=== PATIENT | female | born 1990 | race Caucasian/White ===

== ENCOUNTER 2023-03-07 01:46 | Emergency (ER) | payer OTHER ==
[2023-03-07] MEDS ORDERED: MAGNES/ALUMIN/SIMET 30ML UCUP ONE (02:37)
[2023-03-07] MEDS ORDERED: METOCLOPRAMIDE 10 MG/2mL INJ ONE (02:38)
[2023-03-07] MEDS ORDERED: ACETAMINOPHEN 500 MG TAB ONE (02:39)
[2023-03-07] MEDS ORDERED: NA CHLORIDE 0.9% 1,000 ML ONE (02:40)
[2023-03-07] MEDS ORDERED: ONDANSETRON 4 MG/2 ML VIAL ONE (02:40)
[2023-03-07] MEDS ORDERED: DICYCLOMINE HCL 10 MG CAP ONE (02:40)
[2023-03-07 02:53] LABS: Hematocrit 36.5 % (36.0-45.0); Lymphocytes % 23.8 % (15.3-44.8); MCV 84.4 fL (80-100); MPV 8.2 fL (7.6-11.3); RBC Red Blood Cell Count 4.33 M/uL (3.86-4.86)
[2023-03-07 02:55] LABS: Specific Gravity 1.005 (1.005-1.030); Urine Bacteria <20 /HPF (<20); Urine Bilirubin NEGATIVE (Negative); Urine Blood Negative (Negative); Urine Clarity Turbid (Clear); Urine Color Colorless (Yellow); Urine Glucose NEGATIVE (Negative); Urine Protein NEGATIVE (Negative); Urine RBC None Seen /HPF (None Seen); Urine Urobilinogen Normal (Normal); Urine pH 6.5 (5.0-7.0)
[2023-03-07 03:11] LABS: Albumin 2.8 g/dL (3.4-5.0); Bilirubin Total 0.2 mg/dL (0.2-1.0); Potassium 3.4 mEq/L (3.5-5.1)
--- NOTE | 2023-03-07 05:21 | ER ---
Nurse's Notes [facility] Name: Kelley Sung Age: 32 yrs Sex: Female : 1990 Arrival Date: 03/07/2023 Time: 01:46 Bed 15 Private MD: Diagnosis: associated nausea, cholelithiasis without cholecystitis, biliary colic Presentation: 03/07 01:56 Chief complaint: Patient states: epigastric pain began last P)M current;y 14 weeks kl EDC 09/04/23 reports no increase in nausea. Coronavirus screen: Vaccine status: Patient reports receiving the 2nd dose of the covid vaccine. Ebola Screen: Patient negative for fever greater than or equal to 101.5 degrees Fahrenheit, and additional compatible Ebola Virus Disease symptoms. Initial Sepsis Screen: Does the patient meet any 2 criteria? No. Patient's initial sepsis screen is negative. Does the patient have a suspected source of infection? No. Patient's initial sepsis screen is negative. Risk Assessment: Do you want to hurt yourself or someone else? Patient reports no desire to harm self or others. 01:56 Method Of Arrival: Ambulatory kl 01:56 Acuity: CATHY 3 kl 05:39 Onset of symptoms was March 07, 2023. ha1 Triage Assessment: 02:02 General: Appears uncomfortable, Behavior is calm, cooperative. Pain: Complains of pain kl in epigastric area Pain currently is 6 out of 10 on a pain scale. Quality of pain is described as aching. GI: Reports upper abdominal pain, anorexia. 02:02 General: Appears comfortable, Behavior is calm, cooperative. Pain: Complains of pain in ha1 abdomen and epigastric area Pain does not radiate. Pain currently is 6 out of 10 on a pain scale. Neuro: Level of Consciousness is awake, alert, obeys commands, Oriented to person, place, time, situation. Cardiovascular: Patient's skin is warm and dry. Respiratory: Airway is patent Respiratory effort is even, unlabored, Respiratory pattern is regular, symmetrical. GI: Abdomen is flat, non-distended, Bowel sounds present X 4 quads. Reports upper abdominal pain, nausea, vomiting. : No signs and/or symptoms were reported regarding the genitourinary system. Musculoskeletal: Circulation, motion, and sensation intact. Range of motion: intact in all extremities. Historical: - Allergies: 02:01 No Known Allergies; kl - Home Meds: 02:01 Vitamin Oral 1 tab daily [Active]; zofran [Active]; kl - PSHx: 02:01 None; kl - Immunization history:: Adult Immunizations not immunized. - Social history:: Smoking status: Patient denies any tobacco usage or history of. - Family history:: not pertinent. Screenin:55 [facility] ED Fall Risk Assessment (Adult) History of falling in the last 3 months, ha1 including since admission No falls in past 3 months (0 pts) Confusion or Disorientation No (0 pts) Score/Fall Risk Level 0 - 2 = Low Risk Oriented to surroundings, Maintained a safe environment, Educated pt \T\ family on fall prevention, incl call for assistance when getting out of bed. 02:53 Abuse screen: Denies threats or abuse. Denies injuries from another. Nutritional ha1 screening: No deficits noted. Tuberculosis screening: No symptoms or risk factors identified. Assessment: 01:55 Reassessment: see triage assessment. ha1 01:55 GI: Abd is soft and non tender X 4 quads. ha1 02:50 Reassessment: Patient and/or family updated on plan of care and expected duration. Pain ha1 level reassessed. Patient is alert, oriented x 3, equal unlabored respirations, skin warm/dry/pink. 03:50 Reassessment: Patient and/or family updated on plan of care and expected duration. Pain ha1 level reassessed. Patient is alert, oriented x 3, equal unlabored respirations, skin warm/dry/pink. 04:50 Reassessment: Patient and/or family updated on plan of care and expected duration. Pain ha1 level reassessed. Patient is alert, oriented x 3, equal unlabored respirations, skin warm/dry/pink. Patient states feeling better. Patient states symptoms have improved. Vital Signs: 01:56 BP 133 / 88; Pulse 78; Resp 16; Temp 98.2(O); Pulse Ox 99% on R/A; Weight 73.48 kg; kl Height 5 ft. 2 in. ; Pain 6/10; 02:50 BP 130 / 91; Pulse 85; Resp 18 S; Pulse Ox 100% on R/A; ha1 03:50 BP 118 / 76; Pulse 76; Resp 18 S; Pulse Ox 99% on R/A; ha1 04:45 BP 122 / 92; Pulse 80; Resp 16 S; Pulse Ox 98% on R/A; ha1 01:56 Body Mass Index 29.63 (73.48 kg, 157.48 cm) kl 01:56 Pain Scale: Adult kl ED Course: 01:50 Patient arrived in ED. ja2 01:55 Patient has correct armband on for positive identification. Placed in gown. Bed in low ha1 position. Call light in reach. Side rails up X 1. 01:57 Stephie Soto, ANGEL is Primary Nurse. ha1 02:01 Triage completed. kl 02:03 Zachary Cash MD is Attending Physician. sp4 02:10 Arm band placed on right wrist. ha1 02:30 Inserted saline lock: 20 gauge in left antecubital area, using aseptic technique. Blood ha1 collected. 02:48 CBC with Diff Sent. ha1 02:48 CMP Sent. ha1 02:48 Lipase Sent. ha1 02:48 Urinalysis w/ reflexes Sent. ha1 03:00 US Abdomen Limited In Process Unspecified. EDMS 03:01 OB Limited In Process Unspecified. EDMS 05:37 No provider procedures requiring assistance completed. IV discontinued, intact, ha1 bleeding controlled, No redness/swelling at site. Pressure dressing applied. Administered Medications: 02:30 Drug: NS 0.9% IV 1000 ml Route: IV; Rate: 1 bolus; Site: right antecubital; ha1 02:30 Drug: Ondansetron IVP 4 mg Route: IVP; Site: right antecubital; ha1 02:30 Drug: Ondansetron IVP 4 mg Route: IVP; Site: right antecubital; ha1 02:33 Drug: metoCLOPramide IVP 10 mg Route: IVP; Site: right antecubital; ha1 02:50 Drug: Dicyclomine PO 10 mg Route: PO; ha1 02:52 Drug: Acetaminophen PO 1000 mg Route: PO; ha1 02:52 Drug: Alum-Mag Hydroxide-Simeth PO Suspension (200 mg-200 mg-20 mg/5 mL) 30 ml Route: ha1 PO; Medication: 05:39 VIS not applicable for this client. ha1 Outcome: 05:21 Discharge ordered by . sp4 05:37 Discharged to home ambulatory. ha1 05:37 Condition: stable 05:37 Discharge instructions given to patient, Instructed on discharge instructions, follow up and referral plans. medication usage, Demonstrated understanding of instructions, follow-up care, medications, Prescriptions given X 1. 05:40 Patient left the ED. ha1 Signatures: Dispatcher [employer] EDAliza Wallace RN RN kl Alexander, Jessica ja2 Ayala, Heidy, RN RN 1 Zachary Cash MD MD sp4
--- NOTE | 2023-03-07 05:21 | EDPHYS ---
Physician Documentation [facility] Name: Kelley Sung Age: 32 yrs Sex: Female : 1990 Arrival Date: 03/07/2023 Time: 01:46 Bed 15 Private MD: ED Physician Zachary Cash HPI: 03/07 05:14 This 32 yrs old Female presents to ER via Ambulatory with complaints of sp4 Abdominal Pain, 14wks . 05:14 32-year-old female G1, P0 14 weeks 1 day EGA by sonogram presents with acute onset of sp4 upper abdominal pain starting 2 hours ago. Patient states that she had in vitro fertilization on 12/12/2022. Since she was she developed persistent nausea vomiting and she currently takes Diclegis and Zofran as needed for nausea. Patient states that she woke up 2 hours prior to arrival with upper abdominal pain associated with worsening nausea. . Historical: - Allergies: 02:01 No Known Allergies; kl - Home Meds: 02:01 Vitamin Oral 1 tab daily [Active]; zofran [Active]; kl - PSHx: 02:01 None; kl - Immunization history:: Adult Immunizations not immunized. - Social history:: Smoking status: Patient denies any tobacco usage or history of. - Family history:: not pertinent. ROS: 05:14 Constitutional: Negative for fever, chills, and weight loss, Eyes: Negative for injury, sp4 pain, redness, and discharge, ENT: Negative for injury, pain, and discharge, Neck: Negative for injury, pain, and swelling, Cardiovascular: Negative for chest pain, palpitations, and edema, Respiratory: Negative for shortness of breath, cough, wheezing, and pleuritic chest pain, Abdomen/GI: Negative for vomiting, diarrhea, and constipation, positive for upper abdominal pain associated with nausea. Back: Negative for injury and pain, : Negative for injury, bleeding, discharge, and swelling, MS/Extremity: Negative for injury and deformity, Skin: Negative for injury, rash, and discoloration, Neuro: Negative for headache, weakness, numbness, tingling, and seizure, Psych: Negative for depression, anxiety, Allergy/Immunology: Negative for hives, rash, and allergies Endocrine: Negative for neck swelling, polydipsia, polyuria, polyphagia, and weight changes Hematologic/Lymphatic: Negative for swollen nodes, abnormal bleeding, and unusual bruising Exam: 05:14 Constitutional: This is a well developed, well nourished patient who is awake, alert, sp4 and in no acute distress. Head/Face: Normocephalic, atraumatic. Eyes: Pupils equal round and reactive to light, extra-ocular motions intact. Lids and lashes normal. Conjunctiva and sclera are not injected. Cornea within normal limits. Periorbital areas with no swelling, redness, or edema. ENT: Nares patent. No nasal discharge, no septal abnormalities noted. Tympanic membranes are normal and external auditory canals are clear. Oropharynx with no redness, swelling, or masses, exudates, or evidence of obstruction, uvula midline. Mucous membranes moist. Neck: Trachea midline, no thyromegaly or masses palpated, and no cervical lymphadenopathy. Supple, full range of motion without nuchal rigidity, or vertebral point tenderness. Chest/axilla: Normal chest wall appearance and motion. Nontender with no deformity. No lesions are appreciated. Cardiovascular: Regular rate and rhythm with a normal S1 and S2. No gallops, murmurs, or rubs. Normal PMI, no JVD. No pulse deficits. Respiratory: Lungs have equal breath sounds bilaterally, clear to auscultation and percussion. No rales, rhonchi or wheezes noted. No increased work of breathing, no retractions or nasal flaring. Abdomen/GI: Soft, positive left upper quadrant abdominal discomfort, negative rigidity, negative distention, no rebound, normal active bowel sounds. Back: No spinal tenderness. No costovertebral tenderness. Skin: Warm, dry with normal turgor. Normal color with no rashes, no lesions, and no evidence of cellulitis. MS/ Extremity: Pulses equal, no cyanosis. Neurovascular intact. Full, normal range of motion. Neuro: Awake and alert, GCS 15, oriented to person, place, time, and situation. Cranial nerves II-XII grossly intact. Motor strength 5/5 in all extremities. Sensory grossly intact. Psych: Awake, alert, with orientation to person, place and time. Behavior, mood, and affect are within normal limits Vital Signs: 01:56 BP 133 / 88; Pulse 78; Resp 16; Temp 98.2(O); Pulse Ox 99% on R/A; Weight 73.48 kg; kl Height 5 ft. 2 in. ; Pain 6/10; 02:50 BP 130 / 91; Pulse 85; Resp 18 S; Pulse Ox 100% on R/A; ha1 03:50 BP 118 / 76; Pulse 76; Resp 18 S; Pulse Ox 99% on R/A; ha1 04:45 BP 122 / 92; Pulse 80; Resp 16 S; Pulse Ox 98% on R/A; ha1 01:56 Body Mass Index 29.63 (73.48 kg, 157.48 cm) kl 01:56 Pain Scale: Adult kl MDM: 02:11 Patient medically screened. sp4 05:14 Differential Diagnosis Acute vomiting, acute nausea, associated vomiting, sp4 hyperemesis gravidarum, acute cholecystitis, pancreatitis.. Data reviewed: vital signs, nurses notes, lab test result(s), CBC, electrolytes, hepatic panel, radiologic studies, ultrasound. 05:19 ED course: EXAM: US , Limited CLINICAL HISTORY: ABD CRAMPING, sp4 TECHNIQUE: Real-time limited ultrasound of the maternal uterus with image documentation. COMPARISON: No relevant prior studies available. FINDINGS: Fetus: Single intrauterine gestation. AC: 17.82 cm, 14 weeks 1 days. HL: 1.46 cm, 14 weeks 0 days. Heart rate: cardiac activity measures 156 BPM. Placenta: The placenta is posterior in location. The placental tip is near the internal os. Cervix: The cervix measures 3.6 cm in length. The internal os is closed. Adnexa: The right ovary measures 3.5 x 3.4 x 3.4 cm. The left ovary is not visualized. IMPRESSION: 1. Single live intrauterine gestation. The placental tip is near the internal os. Follow-up is recommended. 2. Estimated gestational age by ultrasound is 14 weeks 0 days. 3. Estimated due date by ultrasound is 2022. 05:19 ED course: There is mild hypokalemia and mild hypoalbuminemia. Otherwise labs are sp4 normal. Lipase is normal.. ED course: EXAM: US Abdomen Limited, Right Upper Quadrant CLINICAL HISTORY: RUQ pain TECHNIQUE: Real-time ultrasound of the right upper quadrant with image documentation. COMPARISON: No relevant prior studies available. FINDINGS: Liver: Unremarkable. No mass. No intrahepatic bile duct dilation. Gallbladder: Multiple gallstones. No gallbladder wall thickening or pericholecystic fluid. Common bile duct: Unremarkable as visualized. No stones. No dilation. Pancreas: Unremarkable as visualized. Right kidney: Unremarkable. No stones. No solid mass. No hydronephrosis. IMPRESSION: Cholelithiasis without secondary signs to suggest acute cholecystitis. 03/07 02:03 Order name: CBC with Diff; Complete Time: 05:06 sp4 03/07 02:03 Order name: CMP; Complete Time: 05:06 sp4 03/07 02:03 Order name: Lipase; Complete Time: 05:06 sp4 03/07 02:03 Order name: Urinalysis w/ reflexes; Complete Time: 05:06 sp4 03/07 02:11 Order name: US Abdomen Limited sp4 03/07 02:14 Order name: OB Limited EDMS 03/07 02:03 Order name: IV Saline Lock; Complete Time: 02:48 sp4 03/07 02:03 Order name: Labs collected and sent; Complete Time: 02:48 sp4 Administered Medications: 02:30 Drug: NS 0.9% IV 1000 ml Route: IV; Rate: 1 bolus; Site: right antecubital; ha1 02:30 Drug: Ondansetron IVP 4 mg Route: IVP; Site: right antecubital; ha1 02:30 Drug: Ondansetron IVP 4 mg Route: IVP; Site: right antecubital; ha1 02:33 Drug: metoCLOPramide IVP 10 mg Route: IVP; Site: right antecubital; ha1 02:50 Drug: Dicyclomine PO 10 mg Route: PO; ha1 02:52 Drug: Acetaminophen PO 1000 mg Route: PO; ha1 02:52 Drug: Alum-Mag Hydroxide-Simeth PO Suspension (200 mg-200 mg-20 mg/5 mL) 30 ml Route: ha1 PO; Disposition Summary: 03/07/23 05:21 Discharge Ordered Location: Home sp4 Problem: new sp4 Symptoms: have improved sp4 Condition: Stable sp4 Diagnosis - associated nausea, cholelithiasis without cholecystitis, biliary colic sp4 Followup: sp4 - With: Private Physician - When: 5 - 6 days - Reason: Recheck today's complaints Discharge Instructions: - Discharge Summary Sheet sp4 - Cholelithiasis, [id number] sp4 Forms: - [email or web address] sp4 Prescriptions: - promethazine 25 mg Oral Tablet - take 1 tablet by ORAL route every 6 hours As needed PRN nausea ( take as sp4 alternative to Zofran ); 30 tablet; Refills: 0, Product Selection Permitted Signatures: Dispatcher [employer] EDMS Aliza Chaves RN RN kl Ayala, Heidy, RN RN ha1 Zachary Cash MD MD sp4 Corrections: (The following items were deleted from the chart) 02:13 02:10 OB Complete+[email or web address].RAD.BRZ ordered. EDMS EDMS
[2023-03-07 06:06] VITALS: TEMP 98.2
[2023-03-07 06:22] VITALS: BP 122/92; O2SAT 98
--- NOTE | 2023-03-07 15:23 | RAD REPORT ---
EXAM DESCRIPTION: US Abdomen Limited, Right Upper Quadrant CLINICAL HISTORY: RUQ pain TECHNIQUE: Real-time ultrasound of the right upper quadrant with image documentation. COMPARISON: No relevant prior studies available. FINDINGS: Liver: Unremarkable. No mass. No intrahepatic bile duct dilation. Gallbladder: Multiple gallstones. No gallbladder wall thickening or pericholecystic fluid. Common bile duct: Unremarkable as visualized. No stones. No dilation. Pancreas: Unremarkable as visualized. Right kidney: Unremarkable. No stones. No solid mass. No hydronephrosis. IMPRESSION: Cholelithiasis without secondary signs to suggest acute cholecystitis. Electronically signed by: Deneen Salomon MD 03/07/2023 3:38 AM CDT Due to temporary technical issues with the PACS/Fluency reporting system, reports are being signed by the in house radiologists without review as a courtesy to insure prompt reporting. The interpreting radiologist is fully responsible for the content of the report.
--- NOTE | 2023-03-07 15:27 | RAD REPORT ---
EXAM DESCRIPTION: US , Limited CLINICAL HISTORY: ABD CRAMPING, TECHNIQUE: Real-time limited ultrasound of the maternal uterus with image documentation. COMPARISON: No relevant prior studies available. FINDINGS: Fetus: Single intrauterine gestation. AC: 17.82 cm, 14 weeks 1 days. HL: 1.46 cm, 14 weeks 0 days. Heart rate: cardiac activity measures 156 BPM. Placenta: The placenta is posterior in location. The placental tip is near the internal os. Cervix: The cervix measures 3.6 cm in length. The internal os is closed. Adnexa: The right ovary measures 3.5 x 3.4 x 3.4 cm. The left ovary is not visualized. IMPRESSION: 1. Single live intrauterine gestation. The placental tip is near the internal os. Follow-up is recommended. 2. Estimated gestational age by ultrasound is 14 weeks 0 days. 3. Estimated due date by ultrasound is 2022. Electronically signed by: Deneen Salomon MD 03/07/2023 3:31 AM CDT Due to temporary technical issues with the PACS/Fluency reporting system, reports are being signed by the in house radiologists without review as a courtesy to insure prompt reporting. The interpreting radiologist is fully responsible for the content of the report.
== END 2023-03-07 05:40 | disposition home or self-care (01) ==
LOC: ER 01:46
DX: O99.612 Diseases of the digestive system complicating pregnancy, second trimester (principal); O26.899 Other specified pregnancy related conditions, unspecified trimester; R11.0 Nausea; Z3A.14 14 weeks gestation of pregnancy
CPT/HCPCS: 85025; 81001; 36415; 83690; 80053; 76705; 76815; J2765; J2405; J7030